=== PATIENT | male | born 1955 | race Caucasian/White ===

== ENCOUNTER → 2018-06-29 14:19 | Outpatient (CLI) | payer BC, SELFPAY ==
[2018-07-02 09:30] LABS: PSA, Diagnostic 0.3 ng/ml (0-4.5)
== END ==
PROVIDERS: PCP Emergency Medicine; Visit Provider Emergency Medicine
DX: R31.9 Hematuria, unspecified (principal); C61 Malignant neoplasm of prostate
CPT/HCPCS: 36415; 81003; 84153; 87086

== ENCOUNTER → 2018-07-04 00:50 | Outpatient (CLI) | payer BC, SELFPAY ==
--- NOTE | 2018-07-04 09:40 | DI.RPTCT_ITS ---
SYMPTOM/DIAGNOSIS: HEMATURIA, UNSPECIFIED R31.[address]: 07/04/ CT examination of the abdomen and pelvis was performed without contrast administration. The visualized portions of the lung bases are unremarkable. A low attenuation incompletely visualized lesion is noted in the liver measuring about 13 mm in greatest diameter at the site of a previously noted right hepatic lobe cyst. Otherwise the liver is unremarkable in appearance. Gallbladder is CT normal and there is no evident biliary dilatation. The pancreas is unremarkable by CT criteria as are visualized portions of the spleen. Abdominal aorta is of normal diameter. No significant abdominal wall hernia seen. Appendix appears normal. No abdominal or pelvic adenopathy seen. Note is made of questionable wall thickening of the distal sigmoid and proximal rectum. Note is also made of apparent wall thickening of the urinary bladder. There are vascular clips in the region of the prostate and the patient reportedly has had previous prostate carcinoma. The findings as described could represent post radiation changes. Correlation with sigmoidoscopy may be considered for further evaluation if clinically appropriate. Adrenals and kidneys appear normal. No urinary tract calcification or obstruction. CONCLUSION: 1. No evidence of urinary tract calcification or obstruction. 2. Wall thickening of the urinary bladder, Question post radiation changes vs cystitis of other etiologies 3. Wall thickening of rectum, possible post radiation changes, inflammatory or neoplastic disease not excluded, please correlate clinically.
== END ==
PROVIDERS: PCP Emergency Medicine; Visit Provider Emergency Medicine
DX: R31.9 Hematuria, unspecified (principal); N32.9 Bladder disorder, unspecified; K62.89 Other specified diseases of anus and rectum; Z85.46 Personal history of malignant neoplasm of prostate
CPT/HCPCS: 74176

== ENCOUNTER 2018-08-17 16:22 | Outpatient (CLI) | payer BC, SELFPAY ==
[2018-08-17 16:42] LABS: Abs Immature Grans 0.02 k/cumm (0.0-0.09); Absolute Basophil Count 0.02 k/cumm (0.0-0.2); Absolute Eosinophil Count 0.02 k/cumm (0.0-0.7); Absolute Lymphocyte Count 1.21 k/cumm (1.2-3.4); Absolute Monocyte Count 0.54 k/cumm (0.11-0.7); Absolute Neutrophil Count 4.75 k/cumm (1.2-6.7); Basophils % 0.3; Eosinophils % 0.3; HCT 42.2 % (40.0-50.0); HGB 14.2 g/dL (13.5-17.5); Immature Grans % 0.3; Lymphocytes % 18.4; Mean Corp. HGB Concentration 33.6 g/dL (32.0-36.0); Mean Corpuscular Hemoglobin 32.1 pg (27.0-33.0); Mean Corpuscular Volume 95.3 fL (80-95); Mean Platelet Volume 10.5 fL (8.0-11.0); Monocytes % 8.2; Neutrophils % 72.5; Platelet Count 206 x1000/uL (130-400); RBC 4.43 m/cumm (4.50-6.00); RBC Distribution Width 13.9 % (11.8-14.1); White Blood Cell Count 6.56 k/cumm (4.4-10.8)
[2018-08-17 17:42] LABS: ALT 38 U/L (12-78); AST 31 U/L (15-37); Alkaline Phosphatase 72 U/L (46-116); Anion Gap 9.2 mmol/L (3-11); BUN 17 mg/dL (7-18); Bilirubin, Total 0.5 mg/dL (0.2-1.0); CO2 26.8 mmol/L (21.0-32.0); CREATININE 0.96 mg/dL (0.70-1.30); Calcium 9.2 mg/dL (8.5-10.1); Chloride 104 mmol/L (98-107); Glucose 106 mg/dL (70-100); Potassium 3.6 mmol/L (3.5-5.1); Sodium 140 mmol/L (136-145); Total Protein 7.3 g/dL (6.4-8.2)
[2018-08-20 11:01] LABS: PSA, Diagnostic 0.3 ng/ml (0-4.5)
== END 2018-08-17 16:42 ==
PROVIDERS: PCP Emergency Medicine; Visit Provider Internal Medicine
DX: C61 Malignant neoplasm of prostate (principal)
CPT/HCPCS: 36415; 80053; 84153; 85025

== ENCOUNTER 2018-08-27 13:01 | Day surgery (SDC) | payer BC, SELFPAY ==
--- NOTE | 2018-08-27 12:51 | DI.RAD_ITS ---
SYMPTOMS/DIAGNOSIS: HEMATURIA BILATERAL RETROGRADE EXAMINATION: Fluoroscopy Time: 35.7secs A bilateral retrograde study was carried out by Dr. Ayala. The left retrograde examination is unremarkable. There is some dilatation of the right intrarenal collecting structures and a region of radiolucency involving the ureteropelvic junction is demonstrated. The findings could conceivably represent a blood clot , or stone or mucosal abnormality. Please see Dr. Ayala's procedure report for further information.
[2018-08-27 13:23] VITALS: BP 118/71; PULSE 45; RESP 15; TEMP 36.5; O2SAT 99
--- NOTE | 2018-08-27 14:07 | W.PM.HP.N ---
Assessment and Plan (1) Gross hematuria: Current visit: Yes Status: Acute For cystoscopy with retrograde pyelogram to complete his workup. History of Present Illness Chief Complaint: Hematuria Narrative: This is a 62 year old man who has a history of prostate cancer. He was treated with a combination of Lupron and IMRT. He has not had any sign of tumor recurrance. He had an episode of gross hematuria with clots several weeks ago. The bleeding resolved on its own and has not recurred. The onset of bleeding occurred after strenuous activity. He has been evaluated with a stone protocol CT which was unremarkable. He presents for cystoscopy to complete his hematuria workup. He has never been a smoker Review of Systems Constitutional Denies chills and Denies fever(s) Eyes Denies change in vision ENT Denies dysphagia Cardiovascular Denies chest pain and Reports syncope Respiratory Denies cough and Denies hemoptysis Gastrointestinal Denies dysphagia, Denies nausea and Denies vomiting Musculoskeletal Reports arthralgias Neurologic Reports syncope Comments: vasovagal reaction PFSH Family History Grandmother Diabetes Mother Heart disease Father Personal history of malignant neoplasm Sister Essential hypertension Grandfather Heart disease Grandfather Heart disease History of rheumatic fever Grandmother Diabetes Medical History Anxiety Carcinoma of prostate Coronary artery bypass x3 - 2010 PTSD (post-traumatic stress disorder) Social History Smoking/Tobacco Use Status: Never Surgical History Coronary Artery Bypass Ga (CABG) (05/20/10) Meds Home Medications Medication Instructions Recorded Confirmed Type aspirin [Aspirin Low-Strength] 1 tab PO DAILY tab-cap 03/25/14 08/27/18 History coenzyme Q10 [Co Q-10] 100 mg PO DAILY 05/27/14 08/24/18 History cholecalciferol (vitamin D3) 5,000 unit PO DAILY 12/22/14 08/24/18 History cyanocobalamin (vitamin B-12) 500 mcg PO DAILY 01/03/18 08/24/18 History [B-12] magnesium amino acid chelate 100 mg PO DAILY 01/03/18 08/24/18 History zinc gluconate-zinc picolinate 30 mg PO DAILY PRN 01/03/18 08/24/18 History pravastatin [Pravachol] 20 mg PO DAILY #90 tab-cap 06/06/18 08/24/18 Rx calcium citrate 1 tab PO DAILY PRN PRN 08/24/18 08/24/18 History vitamin B complex [B Complex 1] 1 tab PO DAILY 08/24/18 08/24/18 History metoprolol tartrate 25 mg PO BID 08/27/18 08/27/18 History Allergies Allergy/AdvReac Type Severity Reaction Status Date / Time No Known Allergies Allergy Unverified 07/03/18 08:43 Exam Const General: cooperative, comfortable and no acute distress Neck Neck: supple Resp Effort & Inspection: normal respiratory effort Auscultation: clear to auscultation bilaterally Cardio Rate: regular rate GI Palpation: soft and no masses Psych Mental Status: mental status grossly normal Results Last Vital Signs Temp 36.5 C 08/27/18 13:23 Pulse 45 L 08/27/18 13:23 Resp 15 08/27/18 13:23 BP 118/71 08/27/18 13:23 Pulse Ox 99 08/27/18 13:23
[2018-08-27] MEDS: Lactated Ringers 1,000 ML 80 ML IV (14:19)
[2018-08-27] MEDS: Lidocaine 2% Jelly 6 ML SYR (14:47)
[2018-08-27] MEDS: IOHEXOL 50 ML 20 ML (14:51)
--- NOTE | 2018-08-27 15:03 | W.PM.DSUDISC ---
Discharge Plan Disposition Patient Disposition: HOME Condition: Stable Discharge Details Reason For Visit: GROSS HEMATURIA Attending Provider: Handy Ayala Primary Care Provider: Fuentes Foreman Home Meds and New Rx's Prescriptions: No Action aspirin [Aspirin Low-Strength] 81 MG tablet,chewable 1 tab PO DAILY RF: 0 coenzyme Q10 [Co Q-10] 100 MG capsule 100 mg PO DAILY RF: 0 cholecalciferol (vitamin D3) 1,000 UNIT capsule 5,000 unit PO DAILY RF: 0 zinc gluconate-zinc picolinate 30 MG capsule 30 mg PO DAILY PRNRF: 0 magnesium amino acid chelate 100 MG tablet 100 mg PO DAILY RF: 0 cyanocobalamin (vitamin B-12) [Vitamin B-12] 500 MCG tablet 500 mcg PO DAILY RF: 0 pravastatin [Pravachol] 20 MG tablet 20 mg PO DAILY Qty: 90 RF: 4 vitamin B complex [B Complex 1] Tablet 1 tab PO DAILY RF: 0 calcium citrate 760 mg calcium /3.5 gram Granules 1 tab PO DAILY PRN PRNRF: 0 metoprolol tartrate 25 MG tablet 25 mg PO BID RF: 0 Discharge Instructions Additional Instructions: Follow up with us prn - continue to follow with [facility] for prostate cancer Activity:: Activity as Tolerated Diet:: As Tolerated Discharge Orders Discharge Orders: Discharge Order (Routine); Ordered 08/27/18 Ordered By: Handy Ayala DS: Diagnosis Discharge Diagnosis (1) Gross hematuria: Status: Acute
[2018-08-27 15:35] VITALS: BP 113/58; PULSE 49; RESP 15; TEMP 36.1; O2SAT 100
--- NOTE | 2018-08-27 16:43 | ROE_ITS ---
DATE OF PROCEDURE: August 27, 2018 PREOPERATIVE DIAGNOSIS: Gross hematuria. POSTOPERATIVE DIAGNOSIS: Gross hematuria. PROCEDURE: Cystoscopy with bilateral retrograde pyelogram. SURGEON: Handy Ayala M.D. ANESTHESIA: MAC with local. COMPLICATIONS: None. HISTORY: This is a 62-year-old gentleman who has a history of prostate cancer. He was treated with a combination of Lupron plus external beam radiation. His tumor has been under good control and is f ollowed at [facility]. About two months ago he had an episode of gross hematuria with clots. The hematuria occurred after a n especially strenuous weekend. He had a noncontrast CT scan which appeared normal. He presents now for cystoscopy with retrograde pyelogram to complete his hematuria workup. OPERATIVE REPORT: The patient was brought to the Operating Room on 08/27/18. After being given jessica tored anesthesia care, he was placed in the dorsal lithotomy position. His genitalia was prepped and draped. Two percent Xylocaine jelly was instilled into the urethra to act as a local anesthetic. A 22 Yakut rigid cystoscope was passed through the urethra into the bladder. The bladder was inspec poornima with a 30-degree lens. The pendulous, bulbous, and membranous urethras all appeared normal with no strictures. The prostati c urethra showed a prominent blood vessel out toward the verumontanum. Additional prominent vessels were seen at the bladder neck. No papillary or nodular lesions were seen in the prostatic fossa. The bladder neck was entered and t he bladder mucosa was inspected. Both ureteral orifices appeared normal. No blood was seen coming f rom either side. No papillary or nodular lesions were seen. Some of the blood vessels in the bladde r appeared prominent. Each ureteral orifice was cannulated with a 6 Yakut access catheter. Retrograde films were obtained by injecting Omnipaque through the access catheter under fluoroscopic guidance. Both ureters and co llecting systems appeared normal. Both sides drained promptly. The bladder was emptied and the scope was removed. The patient tolerated the procedure well with no complications. Based on this examination, I find no significant uropathology. He likely has a component of radiatio n prostatitis that contributes to the episode of bleeding.
== END 2018-08-27 15:48 | disposition home or self-care (01) ==
PROVIDERS: PCP Emergency Medicine; Visit Provider Urology
PROC: (CPT 74450; principal; 2018-08-27 14:15)
DX: R31.0 Gross hematuria (principal); Z85.46 Personal history of malignant neoplasm of prostate
CPT/HCPCS: 52005; NC; 74420; J0131; J0690; J1885; J2250; Q9967

== ENCOUNTER 2018-09-04 10:16 | Outpatient (CLI) | payer BC, SELFPAY ==
[2018-09-04 13:51] LABS: TSH 1.07 uIU/mL (0.358-3.74)
== END 2018-09-04 10:36 ==
PROVIDERS: PCP Emergency Medicine; Visit Provider Emergency Medicine
DX: E78.5 Hyperlipidemia, unspecified (principal)
CPT/HCPCS: 36415; 84443

== ENCOUNTER 2019-02-11 08:39 | Outpatient (CLI) | payer BC, SELFPAY ==
[2019-02-11 14:38] LABS: Abs Immature Grans 0.01 k/cumm (0.0-0.09); Absolute Basophil Count 0.02 k/cumm (0.0-0.2); Absolute Eosinophil Count 0.03 k/cumm (0.0-0.7); Absolute Lymphocyte Count 1.58 k/cumm (1.2-3.4); Absolute Monocyte Count 0.52 k/cumm (0.11-0.7); Basophils % 0.4; Eosinophils % 0.6; HCT 43.7 % (40.0-50.0); HGB 14.5 g/dL (13.5-17.5); Immature Grans % 0.2; Lymphocytes % 29.5; Mean Corp. HGB Concentration 33.2 g/dL (32.0-36.0); Mean Corpuscular Hemoglobin 31.8 pg (27.0-33.0); Mean Corpuscular Volume 95.8 fL (80-95); Mean Platelet Volume 9.9 fL (8.0-11.0); Monocytes % 9.7; Neutrophils % 59.6; Platelet Count 203 x1000/uL (130-400); RBC 4.56 m/cumm (4.50-6.00); RBC Distribution Width 14.2 % (11.8-14.1); White Blood Cell Count 5.36 k/cumm (4.4-10.8)
[2019-02-11 15:24] LABS: ALT 38 U/L (12-78); AST 27 U/L (15-37); Albumin 4.2 g/dL (3.4-5.0); Alkaline Phosphatase 69 U/L (46-116); Anion Gap 15.1 mmol/L (3-11); BUN 16 mg/dL (7-18); Bilirubin, Total 0.5 mg/dL (0.2-1.0); CO2 23.9 mmol/L (21.0-32.0); CREATININE 1.12 mg/dL (0.70-1.30); Calcium 9.1 mg/dL (8.5-10.1); Chloride 100 mmol/L (98-107); Glucose 90 mg/dL (70-100); Potassium 4.1 mmol/L (3.5-5.1); Sodium 139 mmol/L (136-145); Total Protein 7.3 g/dL (6.4-8.2)
[2019-02-12 14:53] LABS: PSA, Diagnostic 0.3 ng/ml (0-4.5)
== END 2019-02-11 08:59 ==
PROVIDERS: PCP Emergency Medicine; Visit Provider Internal Medicine
DX: C61 Malignant neoplasm of prostate (principal)
CPT/HCPCS: 36415; 80053; 84153; 85025

== ENCOUNTER 2019-05-15 04:26 | Outpatient (CLI) | payer BC, SELFPAY ==
[2019-05-15 09:19] LABS: Calculated LDL 141 mg/dL; Cholesterol 203 mg/dL (50-200); HDL Cholesterol 41 mg/dL (40-60); Triglyceride 108 mg/dL (30-150)
== END 2019-05-15 04:46 ==
PROVIDERS: PCP Emergency Medicine; Visit Provider Emergency Medicine
DX: E78.5 Hyperlipidemia, unspecified (principal)
CPT/HCPCS: 36415; 80061; 83721

== ENCOUNTER 2019-08-20 10:28 | Outpatient (CLI) | payer BC, SELFPAY ==
[2019-08-20 14:04] LABS: Absolute Basophil Count 0.02 k/cumm (0.0-0.2); Absolute Eosinophil Count 0.04 k/cumm (0.0-0.7); Absolute Lymphocyte Count 1.53 k/cumm (1.2-3.4); Absolute Monocyte Count 0.44 k/cumm (0.11-0.7); Absolute Neutrophil Count 3.43 k/cumm (1.2-6.7); Basophils % 0.4; Eosinophils % 0.7; HCT 42.9 % (40.0-50.0); HGB 14.4 g/dL (13.5-17.5); Mean Corp. HGB Concentration 33.6 g/dL (32.0-36.0); Mean Corpuscular Hemoglobin 32.1 pg (27.0-33.0); Mean Corpuscular Volume 95.5 fL (80-95); Mean Platelet Volume 10.2 fL (8.0-11.0); Monocytes % 8.1; Neutrophils % 62.8; Platelet Count 229 x1000/uL (130-400); RBC 4.49 m/cumm (4.50-6.00); RBC Distribution Width 13.8 % (11.8-14.1); White Blood Cell Count 5.46 k/cumm (4.4-10.8)
[2019-08-20 14:06] LABS: ALT 32 U/L (16-63); AST 24 U/L (15-37); Albumin 4.1 g/dL (3.4-5.0); Alkaline Phosphatase 54 U/L (46-116); Anion Gap 7.7 mmol/L (3-11); BUN 14 mg/dL (7-18); Bilirubin, Total 0.5 mg/dL (0.2-1.0); CO2 27.3 mmol/L (21.0-32.0); CREATININE 1.11 mg/dL (0.70-1.30); Calcium 9.3 mg/dL (8.5-10.1); Chloride 104 mmol/L (98-107); Glucose 96 mg/dL (70-100); Sodium 139 mmol/L (136-145); Total Protein 7.4 g/dL (6.4-8.2)
[2019-08-20 15:04] LABS: Calculated LDL 104 mg/dL; Cholesterol 179 mg/dL (50-200); HDL Cholesterol 38 mg/dL (40-60); Triglyceride 187 mg/dL (30-150)
[2019-08-21 10:01] LABS: PSA, Diagnostic 0.2 ng/ml (0-4.5)
== END 2019-08-20 10:48 ==
PROVIDERS: PCP Emergency Medicine; Visit Provider Internal Medicine
DX: E78.5 Hyperlipidemia, unspecified (principal); C61 Malignant neoplasm of prostate
CPT/HCPCS: 36415; 80053; 80061; 84153; 85025

== ENCOUNTER 2019-08-24 01:04 | Outpatient (CLI) | payer BC, SELFPAY ==
[2019-08-24 10:25] LABS: ALT 38 U/L (16-63); AST 31 U/L (15-37); Albumin 4.4 g/dL (3.4-5.0); Alkaline Phosphatase 55 U/L (46-116); Bilirubin, Direct 0.19 mg/dL (0.00-0.20); Total Protein 7.5 g/dL (6.4-8.2)
[2019-08-26 07:43] LABS: Vitamin D 25 Total 60.9 ng/ml (30-100)
== END 2019-08-24 01:24 ==
PROVIDERS: PCP Emergency Medicine; Visit Provider Naturopath
DX: E78.5 Hyperlipidemia, unspecified (principal); Z13.21 Encounter for screening for nutritional disorder
CPT/HCPCS: 36415; 80076; 82306

== ENCOUNTER 2019-10-18 08:31 | Outpatient (CLI) | payer BC, MEDICAID, SELFPAY ==
[2019-10-18 10:10] LABS: ALT 39 U/L (16-63); AST 27 U/L (15-37); Albumin 4.2 g/dL (3.4-5.0); Alkaline Phosphatase 54 U/L (46-116); Bilirubin, Total 0.9 mg/dL (0.2-1.0); Calculated LDL 92 mg/dL; Cholesterol 153 mg/dL (<200); HDL Cholesterol 45 mg/dL (40-60); Total Protein 7.2 g/dL (6.4-8.2); Triglyceride 82 mg/dL (<150)
[2019-10-18 17:20] LABS: Bilirubin, Direct 0.18 mg/dL (0.00-0.20)
[2019-10-21 08:24] LABS: Vitamin D 25 Total 65.5 ng/ml (30-100)
== END 2019-10-18 08:51 ==
PROVIDERS: PCP Emergency Medicine; Visit Provider Naturopath
DX: E78.5 Hyperlipidemia, unspecified (principal); Z13.21 Encounter for screening for nutritional disorder
CPT/HCPCS: 36415; 80061; 80076; 82306; 82652

== ENCOUNTER 2020-09-07 01:39 | Outpatient (CLI) | payer MEDICAID, SELFPAY ==
[2020-09-07 12:55] LABS: Absolute Basophil Count 0.02 10^3/uL (0.0-0.2); Absolute Eosinophil Count 0.02 10^3/uL (0.0-0.7); Absolute Lymphocyte Count 1.14 10^3/uL (1.2-3.4); Absolute Monocyte Count 0.47 10^3/uL (0.1-0.8); Absolute Neutrophil Count 2.37 10^3/uL (1.2-6.7); Basophils % 0.5; Eosinophils % 0.5; HCT 44.5 % (40.0-50.0); HGB 14.9 g/dL (13.5-17.5); Lymphocytes % 28.4; MCH 32.9 pg (27.0-33.0); MCHC 33.5 % (32.0-36.0); MCV 98.2 fL (80-95); MPV 10.1 fL (8.0-11.0); Monocytes % 11.7; Neutrophils % 58.9; Nucleated RBC 0 %; Platelet Count 206 10^3/uL (130-400); RBC 4.53 10^6/uL (4.36-5.78); RDW 13.2 % (11.8-14.1); RDW-SD 47.9 fL; WBC 4.02 10^3/uL (4.4-10.8)
[2020-09-07 14:22] LABS: ALT 32 U/L (16-63); AST 31 U/L (15-37); Albumin 4.3 g/dL (3.4-5.0); Alkaline Phosphatase 63 U/L (46-116); Anion Gap 5.1 mmol/L (3-11); BUN 12 mg/dL (7-18); Bilirubin, Total 0.8 mg/dL (0.2-1.0); CO2 29.9 mmol/L (21.0-32.0); CREATININE 0.95 mg/dL (0.70-1.30); Calcium 9.4 mg/dL (8.5-10.1); Chloride 100 mmol/L (98-107); Glucose 86 mg/dL (74-106); Potassium 4.3 mmol/L (3.5-5.1); Sodium 135 mmol/L (136-145); Total Protein 7.5 g/dL (6.4-8.2)
[2020-09-10 11:23] LABS: Estradiol, Mass Spectrometry 47 pg/mL (10-40); Estrone 72 pg/mL (10-60)
[2020-09-11 11:22] LABS: Testosterone, Free 11.9 ng/dL (3.67-13.9); Testosterone, Total 912 ng/dL (240-950)
== END 2020-09-07 01:59 ==
PROVIDERS: PCP Emergency Medicine; Visit Provider Naturopath
DX: R94.7 Abnormal results of other endocrine function studies (principal); Z85.46 Personal history of malignant neoplasm of prostate; E78.5 Hyperlipidemia, unspecified
CPT/HCPCS: 36415; 80053; 84402; 84403; 82670; 82679; 85025

== ENCOUNTER 2020-10-12 02:35 | Outpatient (CLI) | payer MEDICAID, SELFPAY ==
[2020-10-12 10:53] LABS: Calculated LDL 146 mg/dL (<100); Cholesterol 218 mg/dL (<200); HDL Cholesterol 40 mg/dL (40-60); Triglyceride 163 mg/dL (<150)
[2020-10-12 21:59] LABS: PSA, Diagnostic 0.2 ng/mL (0.0-4.5)
[2020-10-13 21:06] LABS: COVID-19 RT-PCR Result NEGATIVE (Negative)
== END 2020-10-12 02:55 ==
PROVIDERS: PCP Emergency Medicine; Visit Provider Otolaryngology
DX: C61 Malignant neoplasm of prostate (principal); I25.10 Atherosclerotic heart disease of native coronary artery without angina pectoris; Z11.59 Encounter for screening for other viral diseases; Z01.818 Encounter for other preprocedural examination
CPT/HCPCS: 36415; 80061; U0003; 84153

== ENCOUNTER 2020-10-15 06:17 | Day surgery (SDC) | payer MEDICAID, SELFPAY ==
--- NOTE | 2020-10-02 15:35 | PDOC.ANES ---
Date of service: 10/02/20 Time of Service: 15:36 Anesthesia Note Report Anesthesia Note: Received fax from Dr. Mojica's office requesting Anesthesia review for upcoming surgery, left submandibular gland excision on 10/15/20. [facility] and [facility] charts reviewed. Phoned office to inform that case can proceed as scheduled.
[2020-10-15] VITALS (8 sets, daily range): BP systolic 98–163; BP diastolic 53–82; PULSE 46–52; RESP 4–16; TEMP 36.3–36.9; O2SAT 97–100
[2020-10-15] MEDS: Lactated Ringers 1,000 ML 80 ML IV (06:59)
[2020-10-15] MEDS: ceFAZolin 2 GM/50 ML BAG IVPB (07:35)
--- NOTE | 2020-10-15 09:13 | GLAND_PTH ---
PATIENT: Tang Hyman LOC: [facility] U#:[id number] AGE/SX: 65/M ROOM: RE10/15/[address]: Deep Mojica MD : [id number] BED: DIS: 10/15/2020 SPEC #: [id number] RECD: 10/15/20 12:24 STATUS: EMILE REQ #: [id number] JENNIFER: 10/15/20 09:[address]: Deep Mojica DEPT: Surgical Specimen RECD BY: Arabella Paulson ENTERED: 10/15/20 12:26 SP TYPE: Gland OTHR DR: Fuentes Foreman DO Tissues: 1 - SALIVARY GLAND EXCISION Procedures: GROSS AND MICRO LEVEL 5 Comments: [id number]
--- NOTE | 2020-10-15 09:35 | W.PM.DSUDISC ---
Discharge Plan Disposition Patient Disposition: HOME Condition: Good Discharge Details Attending Provider: Deep Mojica Primary Care Provider: Fuentes Foreman Home Meds and New Rx's Prescriptions: No Action aspirin [Aspirin Low-Strength] 81 MG tablet,chewable 1 tab PO DAILY RF: 0 coenzyme Q10 [Co Q-10] 100 MG capsule 100 mg PO DAILY RF: 0 cholecalciferol (vitamin D3) 1,000 UNIT capsule 5,000 unit PO DAILY RF: 0 magnesium amino acid chelate 100 MG tablet 100 mg PO DAILY RF: 0 cyanocobalamin (vitamin B-12) [Vitamin B-12] 500 MCG tablet 500 mcg PO DAILY RF: 0 metoprolol tartrate 25 mg tablet 12.5 mg PO BID Qty: 90 RF: 3 rosuvastatin 20 mg tablet 20 mg PO DAILY Qty: 90 RF: 3 vitamin B complex [B Complex 1] Tablet 1 tab PO DAILY RF: 0 niacin 100 mg Tablet 400 mg PO DAILY RF: 0 Discharge Instructions Additional Instructions: May shower today with dressing. Remove dressing tomorrow after shower and do not replace. Call with any signs of infection. Apply bacitracin ointment to the incision 3x per day x 3 days once dressing removed. Use Ibuprofen and/or tylenol for pain control Referrals: Deep Mojica MD [ [facility] STAFF PHYSICIAN] - (2 weeks. Please call for appointment) Activity:: light activity for 1 week Diet:: As Tolerated
[2020-10-15] MEDS: Ibuprofen 600 MG TAB PO (11:05)
--- NOTE | 2020-10-15 11:38 | W.PM.OP ---
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 Options were explained to the patient regarding further management. Risks and benefits were reviewed. Consent was filled out and signed prior to surgery. Findings: Fibrotic tissues surrounding the left submandibular gland which was also fibrotic and firm. Marginal mandibular nerve, lingual nerve, and hypoglossal nerves were all seen and preserved. Palpation of the submandibular duct did not reveal any residual palpable sialoliths. Procedure Description: After obtaining an adequate level of general endotracheal anesthesia the patient was positioned in a supine position with his head turned to the right. 1% lidocaine with 1/100,000 epinephrine was injected into an incision planned approximately 2 fingerbreadths below the mandibular ramus, along the skin crease. This lay directly over the inferior aspect of the submandibular gland. 15 blade was used to incise the skin and subcutaneous tissues. The platysmal plane was then sharply divided, and dissection continued down along the inferior Edge of the submandibular gland through the fascia overlying the submandibular gland. The marginal mandibular nerve was identified midway along the Lateral aspect of the submandibular gland and was reflected cephalad with the submandibular fascia. This was significantly fibrotic throughout the entire fascial plane. Once this had been reflected, the submandibular gland was progressively marsupialized, and the lingual nerve identified. The branch of the lingual nerve leading to the submandibular gland was identified, crossclamped, ligated, and divided. The gland was progressively mobilized, finding scar tissue on all fronts. The hypoglossal nerve was identified and preserved. As the gland was Skeletonized, the submandibular duct was identified, and traced forward underneath the mylohyoid. No stones could be palpated. The submandibular duct was isolated, crossclamped, divided, and ligated. The wound was then inspected for relative hemostasis, and Valsalva x2 did not cause any bleeding. The wound was irrigated with saline, and then closed in 2 layers, consisting of a platysmal layer of three-point 0 Monocryl's, and a subcuticular plane of inverted interrupted 3-0 Monocryl's. Wound edges were felt to be well approximated. A sterile dressing was then applied. Pressure was held on the wound while the patient awakened, with no accumulation of hematoma or seroma during the awakening process. The patient was transported the recovery room in stable condition. I was present throughout the entire case. Thanks this is bending back and dictating. Please note that Jessica assisted me throughout the case . Specimen was sent to pathology in formalin
== END 2020-10-15 12:25 | disposition home or self-care (01) ==
PROVIDERS: PCP Emergency Medicine; Visit Provider Otolaryngology
PROC: (CPT 42410; principal; 2020-10-15 07:30)
DX: K11.23 Chronic sialoadenitis (principal); E78.5 Hyperlipidemia, unspecified; I25.10 Atherosclerotic heart disease of native coronary artery without angina pectoris
CPT/HCPCS: 42440; 88307; J0690; J1100; J2405; J2704

== ENCOUNTER 2021-03-30 03:19 | Outpatient (CLI) | payer MEDICAID, SELFPAY ==
[2021-03-30 09:21] LABS: Absolute Basophil Count 0.01 10^3/uL (0.0-0.2); Absolute Eosinophil Count 0.05 10^3/uL (0.0-0.7); Absolute Lymphocyte Count 1.34 10^3/uL (1.2-3.4); Absolute Monocyte Count 0.44 10^3/uL (0.1-0.8); Absolute Neutrophil Count 1.84 10^3/uL (1.2-6.7); Basophils % 0.3; Eosinophils % 1.4; HGB 14.7 g/dL (13.5-17.5); Lymphocytes % 36.4; MCH 32.6 pg (27.0-33.0); MCHC 33.4 % (32.0-36.0); MCV 97.6 fL (80-95); MPV 9.6 fL (8.0-11.0); Neutrophils % 49.9; Nucleated RBC 0 %; Platelet Count 201 10^3/uL (130-400); RBC 4.51 10^6/uL (4.36-5.78); RDW 13.3 % (11.8-14.1); RDW-SD 48.5 fL; WBC 3.68 10^3/uL (4.4-10.8)
[2021-03-30 09:59] LABS: ALT 42 U/L (16-63); AST 33 U/L (15-37); Albumin 4.1 g/dL (3.4-5.0); Alkaline Phosphatase 62 U/L (46-116); Anion Gap 6.7 mmol/L (3-11); BUN 11 mg/dL (7-18); Bilirubin, Total 0.7 mg/dL (0.2-1.0); CO2 30.3 mmol/L (21.0-32.0); CREATININE 0.9 mg/dL (0.70-1.30); Calcium 9.2 mg/dL (8.5-10.1); Chloride 104 mmol/L (98-107); Glucose 100 mg/dL (74-106); Potassium 4.2 mmol/L (3.5-5.1); Sodium 141 mmol/L (136-145); Total Protein 7.2 g/dL (6.4-8.2)
[2021-03-30 10:16] LABS: Calculated LDL 127 mg/dL (<100); Cholesterol 200 mg/dL (<200); HDL Cholesterol 41 mg/dL (40-60); Triglyceride 164 mg/dL (<150)
[2021-03-31 18:51] LABS: PSA, Ultrasensitive 0.31 ng/mL (<= 4.5)
[2021-04-02 12:45] LABS: Testosterone, Total 851 ng/dL (240-950)
== END 2021-03-30 03:20 | disposition home or self-care (01) ==
LOC: LBO 03:20
PROVIDERS: PCP Emergency Medicine; Visit Provider Internal Medicine
DX: C61 Malignant neoplasm of prostate (principal); I25.10 Atherosclerotic heart disease of native coronary artery without angina pectoris
CPT/HCPCS: 36415; 80053; 80061; 84153; 84403; 85025

== ENCOUNTER 2021-10-25 04:07 | Outpatient (CLI) | payer MEDICARE, SELFPAY ==
[2021-10-25 13:32] LABS: Calculated LDL 103 mg/dL (<100); Cholesterol 171 mg/dL (<200); HDL Cholesterol 43 mg/dL (40-60); Triglyceride 128 mg/dL (<150)
[2021-10-26 17:08] LABS: PSA, Ultrasensitive 0.31 ng/mL (<= 4.5)
== END 2021-10-25 04:08 | disposition home or self-care (01) ==
LOC: LBO 04:08
PROVIDERS: PCP Emergency Medicine; Visit Provider Emergency Medicine
DX: I25.10 Atherosclerotic heart disease of native coronary artery without angina pectoris (principal); C61 Malignant neoplasm of prostate
CPT/HCPCS: 36415; 80061; 84153

== ENCOUNTER 2022-04-08 12:32 | Outpatient (CLI) | payer MEDICARE, MEDICAID, SELFPAY ==
[2022-04-08 11:28] LABS: Abs Immature Grans 0.01 10^3/uL (0.0-0.06); Absolute Basophil Count 0.03 10^3/uL (0.0-0.2); Absolute Eosinophil Count 0.04 10^3/uL (0.0-0.7); Absolute Lymphocyte Count 1.27 10^3/uL (1.2-3.4); Absolute Monocyte Count 0.42 10^3/uL (0.1-0.8); Absolute Neutrophil Count 2.14 10^3/uL (1.2-6.7); Basophils % 0.8; HCT 44.9 % (40.0-50.0); HGB 15.1 g/dL (13.5-17.5); Immature Grans % 0.3; Lymphocytes % 32.5; MCH 32.2 pg (27.0-33.0); MCHC 33.6 % (32.0-36.0); MCV 96 fL (80-95); MPV 9.9 fL (8.0-11.0); Monocytes % 10.7; Neutrophils % 54.7; Platelet Count 247 10^3/uL (130-400); RBC 4.69 10^6/uL (4.36-5.78); RDW 13.4 % (11.8-14.1); RDW-SD 47.7 fL; WBC 3.91 10^3/uL (4.4-10.8)
[2022-04-08 12:12] LABS: ALT 54 U/L (16-63); AST 48 U/L (15-37); Albumin 4.2 g/dL (3.4-5.0); Alkaline Phosphatase 74 U/L (46-116); Anion Gap 9.4 mmol/L (3-11); BUN 12 mg/dL (7-18); Bilirubin, Total 0.9 mg/dL (0.2-1.0); CO2 26.6 mmol/L (21.0-32.0); CREATININE 0.9 mg/dL (0.70-1.30); Calcium 9.4 mg/dL (8.5-10.1); Chloride 106 mmol/L (98-107); Glucose 90 mg/dL (74-106); Potassium 4.4 mmol/L (3.5-5.1); Sodium 142 mmol/L (136-145); Total Protein 7.2 g/dL (6.4-8.2)
[2022-04-12 11:33] LABS: PSA, Ultrasensitive 0.35 ng/mL (<= 4.5)
== END 2022-04-08 12:33 | disposition home or self-care (01) ==
LOC: LBO 12:39
PROVIDERS: PCP Family Medicine; Visit Provider Nurse Practitioner Adult Health
DX: C61 Malignant neoplasm of prostate (principal)
CPT/HCPCS: 36415; 80053; 84153; 85025

== ENCOUNTER 2022-06-07 03:34 | Outpatient (CLI) | payer MEDICARE, MEDICAID, SELFPAY ==
[2022-06-07 10:01] LABS: ALT 36 U/L (16-63); AST 27 U/L (15-37); Albumin 4.2 g/dL (3.4-5.0); Alkaline Phosphatase 67 U/L (46-116); Bilirubin, Direct 0.2 mg/dL (0.0-0.2); Bilirubin, Total 0.8 mg/dL (0.2-1.0); Calculated LDL 123 mg/dL (<100); Cholesterol 199 mg/dL (<200); HDL Cholesterol 49 mg/dL (40-60); Total Protein 7.7 g/dL (6.4-8.2); Triglyceride 137 mg/dL (<150); Vitamin B12 1206 pg/mL (193-986)
[2022-06-07 11:01] LABS: Folate > 20.0 ng/mL (8.6-20.0)
[2022-06-07 18:41] LABS: Vitamin D 25 Total 54.5 ng/mL (30-100)
== END 2022-06-07 03:35 | disposition home or self-care (01) ==
PROVIDERS: PCP Nurse Practitioner; Visit Provider Naturopath
DX: E78.5 Hyperlipidemia, unspecified (principal); E55.9 Vitamin D deficiency, unspecified; E72.12 Methylenetetrahydrofolate reductase deficiency
CPT/HCPCS: 36415; 80061; 80076; 82306; 83090; 82607; 82746

== ENCOUNTER 2022-11-18 13:44 | Outpatient (CLI) | payer MEDICARE, MEDICAID, SELFPAY ==
--- NOTE | 2022-11-18 13:30 | RT.EKG_ITS ---
APPROVED REPORT Exam: Resting ECG Reason for Exam: cardiac evaluation Patient Location: O HR:68 bpm ECG Measurements Heart Rate 68 AXIS NV 161 P 138 QRSd 104 QRS 144 QT 322 T -42 QTc 343 Conclusion Right and left arm electrode reversal, interpretation assumes no reversal Sinus or ectopic atrial rhythm...P axis (-45,135) Probable left atrial enlargement...P >50mS, <-0.10mV V1 Right axis deviation...QRS axis ( 91,269) Borderline low voltage, extremity leads...all extremity leads <0.6mV Baseline wander in lead(s) V2,V5,V6
--- NOTE | 2022-11-18 14:15 | RT.EKG_ITS ---
APPROVED REPORT Exam: Resting ECG Reason for Exam: evaluation of cardiac Patient Location: O HR:59 bpm ECG Measurements Heart Rate 59 AXIS ME 166 P 61 QRSd 105 QRS 59 QT 409 T 30 QTc 406 Conclusion Sinus rhythm...normal P axis, V-rate 50- 99 Probable left ventricular hypertrophy...multiple LVH criteria
== END 2022-11-18 13:45 | disposition home or self-care (01) ==
PROVIDERS: PCP Nurse Practitioner Family; Visit Provider Internal Medicine Cardiovascular Disease
DX: I25.10 Atherosclerotic heart disease of native coronary artery without angina pectoris (principal); Z95.1 Presence of aortocoronary bypass graft
CPT/HCPCS: 93010

== ENCOUNTER → 2022-11-18 13:54 | Outpatient (BNVA) | payer MEDICARE, SELFPAY | PROVIDERS: PCP Nurse Practitioner Family; Referring Provider Nurse Practitioner Family; Visit Provider Internal Medicine Cardiovascular Disease | DX: I25.10 Atherosclerotic heart disease of native coronary artery without angina pectoris (principal); E78.5 Hyperlipidemia, unspecified; Z95.1 Presence of aortocoronary bypass graft | CPT/HCPCS: 93005; 99203 ==

== ENCOUNTER 2023-05-23 09:44 | Outpatient (CLI) | payer MEDICARE, SELFPAY ==
[2023-05-23 10:02] LABS: Abs Immature Grans 0.01 10^3/uL (0.0-0.06); Absolute Basophil Count 0.03 10^3/uL (0.0-0.2); Absolute Eosinophil Count 0.05 10^3/uL (0.0-0.7); Absolute Lymphocyte Count 1.33 10^3/uL (1.2-3.4); Absolute Monocyte Count 0.46 10^3/uL (0.1-0.8); Absolute Neutrophil Count 2.69 10^3/uL (1.2-6.7); Basophils % 0.7; Eosinophils % 1.1; HCT 44.8 % (40.0-50.0); HGB 15.1 g/dL (13.5-17.5); Immature Grans % 0.2; Lymphocytes % 29.1; MCH 31.5 pg (27.0-33.0); MCHC 33.7 % (32.0-36.0); MCV 93 fL (80-95); MPV 9.4 fL (8.0-11.0); Monocytes % 10.1; Neutrophils % 58.8; Platelet Count 244 10^3/uL (130-400); RDW 13.3 % (11.8-14.1); RDW-SD 45.9 fL; WBC 4.57 10^3/uL (4.4-10.8)
[2023-05-23 10:16] LABS: ALT 41 U/L (16-63); AST 35 U/L (15-37); Albumin 4.1 g/dL (3.4-5.0); Alkaline Phosphatase 73 U/L (46-116); Anion Gap 7.7 mmol/L (3-11); BUN 11 mg/dL (7-18); Bilirubin, Total 0.7 mg/dL (0.2-1.0); CO2 27.3 mmol/L (21.0-32.0); Calcium 9.3 mg/dL (8.5-10.1); Chloride 104 mmol/L (98-107); Estimated GFR 83.01 (mL/min/1.73m2); Glucose 93 mg/dL (74-106); Potassium 4.1 mmol/L (3.5-5.1); Sodium 139 mmol/L (136-145); Total Protein 7.5 g/dL (6.4-8.2)
[2023-05-25 11:21] LABS: PSA, Ultrasensitive 0.44 ng/mL (<= 4.5)
== END 2023-05-23 09:45 | disposition home or self-care (01) ==
LOC: LBO 09:44
PROVIDERS: PCP Nurse Practitioner Family; Visit Provider Internal Medicine
DX: C61 Malignant neoplasm of prostate (principal)
CPT/HCPCS: 36415; 80053; 84153; 85025

== ENCOUNTER → 2023-11-17 13:41 | Outpatient (BNVA) | payer MEDICARE, SELFPAY | PROVIDERS: PCP Nurse Practitioner Family; Referring Provider Nurse Practitioner Family; Visit Provider Internal Medicine Interventional Cardiology | DX: I25.118 Atherosclerotic heart disease of native coronary artery with other forms of angina pectoris (principal); E78.5 Hyperlipidemia, unspecified | CPT/HCPCS: 99213 ==

== ENCOUNTER → 2023-12-07 01:21 | Outpatient (CLI) | payer MEDICARE, SELFPAY ==
--- NOTE | 2023-12-07 07:00 | DI.NM_ITS ---
APPROVED REPORT Exam: Exercise Treadmill Patient Location: Out-Patient Room/Bed: Stress Nurse: Angy Galloway RN Ordering Provider:MICKY HAILE, Contact Number: BMI: 28.05 Baseline Rhythm: Sinus Bradycardia Indications: Chest pain, ASCVD Medical History Medical History: CAD, HTN, HLD, ASCVD, prostate CA, PTSD, depression, anxiety Cardiac Medications: Aspirin, Vitamin D3, coenzyme Q10, Vitamin B12, exetimbe, omega 3 fatty acids, r osuvastatin Allergies: Nitrous oxide, folic acid Cardiac Risk Factors: Family Hx, HTN, HLD Previous Cardiac Procedures: CABGx3 2009 Pretest Chest Pain Characteristics: none Exercise History: Indeterminate Physical Disabilities: none Lung Sounds: Clear to auscultation Heart Sounds: Regular Stress Test Details Test: Exercise stress testing was performed using a Mayo protocol. Nuclear Acquisition: Rest Tc-99m/Stress Tc-99m 1 day Rest Isotope: Tc-99m Sestamibi. Dose: 10 Date: 12/07/2023 Injection Time: 0930 Stress Isotope: Tc-99m Sestamibi. Dose: 30 Date: 12/07/2023 Injection Time: 1115 HR Resting HR Supine: 48 bpm Max Heart Rate (APMHR): 153.191704 bpm Resting HR Standin bpm Target HR (85% APMHR): 130.022934 bpm Max HR Achieved: 133 bpm % of APMHR: 86.93 Recovery HR: 62 bpm HR response to stress: Normal HR response to stress BP Resting BP Supine: 128/64 mmHg Resting BP Standin/76 mmHg Max BP: 164/58 mmHg Recovery BP: 110/56 mmHg BP response to stress: Abnormal hypotensive response to stress. Comment: hypotensive upon exercise cessation ECG Resting ECG: Sinus Bradycardia Ectopy: none Stress ECG: Sinus Tachycardia ST Change: Downsloping ST depression, Horizontal ST depression Lead(s): II, III, aVF, V5, V6 Stage: 2-[address] Deviation: 3 mm Arrhythmia: None Recovery ECG: Sinus Rhythm Recovery ST Change: No significant ST segment changes noted Recovery Arrhythmia: None Clinical Reason for Termination: Target HR Achieved Stress Symptoms: Dizziness Exercise duration: 10 min28 sec Highest Stage Reached: Stage 4: 4.2 mph at 16% grade. Exercise capacity: 12.59 METs Functional Capacity: Average Capacity Angina Score: None Rico Treadmill Score: 9.1 Rate Pressure Product: 10125 Stress ECG Conclusion 1. 1. Normal clinical response without induced angina 2. 2. Abnormal ECG response with downsloping ST depression inferolaterally suggestive of ischemia. 3. 3. Abnormal BP response with relative hypotension during early recovery 4. 4. Nuclear findings reported separately. Rico Treadmill Score is 9.1 which is Low risk. MPI Conclusion 1. There is small area of alicia-apical hypoperfusion which is reversible consistent with ischemia. 2. Moderate LV systolic dysfunction,EF 39% Radiologist Interpretation Radiologist Interpretation by: Matias Ramirez MD Interpretation Date/Time: 12/13/2023 07:40:11
== END ==
PROVIDERS: PCP Nurse Practitioner Family; Visit Provider Internal Medicine Interventional Cardiology
DX: I25.10 Atherosclerotic heart disease of native coronary artery without angina pectoris (principal)
CPT/HCPCS: 78452; 93016; 93018; 93017

== ENCOUNTER → 2023-12-21 00:57 | Outpatient (CLI) | payer MEDICARE, SELFPAY ==
--- NOTE | 2023-12-21 14:15 | DI.US_ITS ---
APPROVED REPORT EXAM: Comprehensive 2D, Doppler, and color-flow Echocardiogram Patient Location: Out-Patient Sap Senior Developer: Humera Pradhan RDCS Rhythm: NSR Indications: Angina, CAD, Congestive Heart Failure. Other Information Study Quality: Fair Conclusion Normal chamber sizes Mild hypokinesis of the septum and apex with normal overall LV systolic function, EF 60-65%. Normal R V function. Anatomically normal valves. Trace MR/AI/TR, no phtn No intracardiac shunt No pericardial effusion. Wall motion Left Ventricle The left ventricle is normal size. The left ventricular systolic function is normal. The left ventric ular ejection fraction is within the normal range. There is normal left ventricular wall thickness. T here is normal LV segmental wall motion. The left ventricular diastolic function is normal. There is no ventricular septal defect visualized. LVEF is 60-65%. Right Ventricle The right ventricle is normal size. The right ventricular systolic function is normal. Atria The left atrium size is normal. The right atrium size is normal. The interatrial septum is intact wit h no evidence for an atrial septal defect. Aortic Valve Aortic valve is trileaflet. Aortic valve leaflets are mildly thickened. There is no aortic valvular s tenosis. Trace aortic regurgitation. Mitral Valve Mitral valve leaflets are thickened. No evidence of mitral valve stenosis. There is trivial mitral re gurgitation. Tricuspid Valve The tricuspid valve is normal in structure. There is no tricuspid valve stenosis. Trace tricuspid reg urgitation. The RVSP is 29 mmHg. Pulmonic Valve The pulmonary valve is normal in structure. There is no pulmonic valvular stenosis. Mild pulmonic reg urgitation. Great Vessels The aortic root is normal in size. The pulmonary artery is normal. The ascending aorta is normal in s ize. Aortic arch is normal in caliber. IVC is normal in size and collapses >50% with inspiration. Pericardium There is no pericardial effusion.
== END ==
PROVIDERS: PCP Nurse Practitioner Family; Visit Provider Internal Medicine Interventional Cardiology
DX: I50.9 Heart failure, unspecified (principal)
CPT/HCPCS: 93306

== ENCOUNTER → 2023-12-28 11:28 | Outpatient (BNVA) | payer MEDICARE, SELFPAY | PROVIDERS: PCP Nurse Practitioner Family; Visit Provider Internal Medicine Cardiovascular Disease | DX: I25.118 Atherosclerotic heart disease of native coronary artery with other forms of angina pectoris (principal) | CPT/HCPCS: 99213 ==

== ENCOUNTER 2024-05-02 01:37 | Outpatient (CLI) | payer MEDICARE, SELFPAY ==
[2024-05-02 14:15] LABS: Abs Immature Grans 0.01 10^3/uL (0.0-0.06); Absolute Basophil Count 0.03 10^3/uL (0.0-0.2); Absolute Eosinophil Count 0.01 10^3/uL (0.0-0.7); Absolute Monocyte Count 0.53 10^3/uL (0.1-0.8); Absolute Neutrophil Count 3.44 10^3/uL (1.2-6.7); Basophils % 0.5 %; Eosinophils % 0.2 %; HCT 43.9 % (40.0-50.0); HGB 14.8 g/dL (13.5-17.5); Immature Grans % 0.2 %; Lymphocytes % 28.5 %; MCH 32.5 pg (27.0-33.0); MCHC 33.7 % (32.0-36.0); MCV 96 fL (80-95); MPV 10.2 fL (8.0-11.0); Monocytes % 9.4 %; Neutrophils % 61.2 %; Platelet Count 253 10^3/uL (130-400); RBC 4.56 10^6/uL (4.36-5.78); RDW 13.6 % (11.8-14.1); RDW-SD 49.1 fL; WBC 5.62 10^3/uL (4.4-10.8)
[2024-05-02 14:55] LABS: ALT 49 U/L (16-63); AST 38 U/L (15-37); Albumin 4.1 g/dL (3.4-5.0); Alkaline Phosphatase 70 U/L (46-116); Anion Gap 10.8 mmol/L (3-11); BUN 20 mg/dL (7-18); Bilirubin, Total 0.45 mg/dL (0.2-1.0); CO2 26.2 mmol/L (21.0-32.0); CREATININE 0.9 mg/dL (0.70-1.30); Calcium 9.4 mg/dL (8.5-10.1); Chloride 103 mmol/L (98-107); Estimated GFR 93.61 (mL/min/1.73m2); Glucose 111 mg/dL (74-106); Potassium 3.6 mmol/L (3.5-5.1); Sodium 140 mmol/L (136-145); Total Protein 7.7 g/dL (6.4-8.2)
[2024-05-04 11:07] LABS: PSA, Ultrasensitive 0.37 ng/mL (<= 4.5)
== END 2024-05-02 01:38 | disposition home or self-care (01) ==
PROVIDERS: PCP Nurse Practitioner Family; Visit Provider Nurse Practitioner
DX: C61 Malignant neoplasm of prostate (principal)
CPT/HCPCS: 36415; 80053; 84153; 85025

== ENCOUNTER 2024-06-28 12:32 | Outpatient (CLI) | payer MEDICARE, SELFPAY ==
[2024-06-28 12:41] LABS: Abs Immature Grans 0.01 10^3/uL (0.0-0.06); Absolute Basophil Count 0.03 10^3/uL (0.0-0.2); Absolute Eosinophil Count 0.04 10^3/uL (0.0-0.7); Absolute Lymphocyte Count 1.33 10^3/uL (1.2-3.4); Absolute Monocyte Count 0.43 10^3/uL (0.1-0.8); Absolute Neutrophil Count 3.71 10^3/uL (1.2-6.7); Basophils % 0.5 %; Eosinophils % 0.7 %; HCT 42.4 % (40.0-50.0); HGB 14.2 g/dL (13.5-17.5); Immature Grans % 0.2 %; MCH 31.8 pg (27.0-33.0); MCHC 33.5 % (32.0-36.0); MCV 95 fL (80-95); MPV 9.9 fL (8.0-11.0); Monocytes % 7.7 %; Neutrophils % 66.9 %; Platelet Count 221 10^3/uL (130-400); RBC 4.47 10^6/uL (4.36-5.78); RDW 13.5 % (11.8-14.1); RDW-SD 47.7 fL; WBC 5.55 10^3/uL (4.4-10.8)
[2024-06-28 13:52] LABS: ALT 46 U/L (16-63); AST 45 U/L (15-37); Alkaline Phosphatase 70 U/L (46-116); BUN 20 mg/dL (7-18); Bilirubin, Total 0.74 mg/dL (0.2-1.0); CREATININE 1.3 mg/dL (0.70-1.30); Calcium 9.2 mg/dL (8.5-10.1); Chloride 104 mmol/L (98-107); Estimated GFR 60.21 (mL/min/1.73m2); Glucose 138 mg/dL (74-106); Sodium 141 mmol/L (136-145); Total Protein 7.2 g/dL (6.4-8.2)
[2024-07-01 17:50] LABS: PSA, Ultrasensitive 0.22 ng/mL (<= 4.5)
== END 2024-06-28 12:33 | disposition home or self-care (01) ==
LOC: LBO 12:33
PROVIDERS: PCP Nurse Practitioner Family; Visit Provider Nurse Practitioner
DX: C61 Malignant neoplasm of prostate (principal)
CPT/HCPCS: 36415; 80053; 84153; 85025

== ENCOUNTER 2024-12-26 07:54 | Outpatient (CLI) | payer MEDICARE, SELFPAY ==
--- NOTE | 2024-12-26 07:45 | RT.EKG_ITS ---
APPROVED REPORT Exam: Resting ECG Reason for Exam: cardiac evaluation Patient Location: O HR:74 bpm ECG Measurements Heart Rate 74 AXIS MN 164 P 68 QRSd 104 QRS 76 QT 404 T 17 QTc 449 Conclusion Sinus rhythm...normal P axis, V-rate 50- 99 LVH by voltage Baseline wander in lead(s) V1,V5,V6
== END 2024-12-26 07:55 | disposition home or self-care (01) ==
LOC: DI.CARD 07:54
PROVIDERS: PCP Nurse Practitioner Family; Visit Provider Internal Medicine Cardiovascular Disease
DX: I25.118 Atherosclerotic heart disease of native coronary artery with other forms of angina pectoris (principal); Z95.1 Presence of aortocoronary bypass graft; E78.5 Hyperlipidemia, unspecified
CPT/HCPCS: 93010

== ENCOUNTER → 2024-12-26 13:23 | Outpatient (BNVA) | payer MEDICARE, SELFPAY | PROVIDERS: PCP Nurse Practitioner Family; Visit Provider Internal Medicine Cardiovascular Disease | DX: I25.118 Atherosclerotic heart disease of native coronary artery with other forms of angina pectoris (principal); Z95.1 Presence of aortocoronary bypass graft | CPT/HCPCS: 93005; 99213 ==

== ENCOUNTER 2025-09-11 03:31 | Outpatient (CLI) | payer MEDICARE, SELFPAY ==
[2025-09-11 11:03] LABS: Abs Immature Grans 0.01 10^3/uL (0.0-0.06); HCT 42.1 % (40.0-50.0); HGB 14.0 g/dL (13.5-17.5); Immature Grans % 0.2 %; MCH 31.7 pg (27.0-33.0); MCHC 33.3 % (32.0-36.0); MCV 95 fL (80-95); MPV 10.2 fL (8.0-11.0); Platelet Count 212 10^3/uL (130-400); RBC 4.42 10^6/uL (4.36-5.78); RDW 13.7 % (11.8-14.1); RDW-SD 48.7 fL; WBC 4.22 10^3/uL (4.4-10.8)
[2025-09-11 12:10] LABS: ALT 42 U/L (16-63); AST 39 U/L (15-37); Albumin 4.0 g/dL (3.4-5.0); Alkaline Phosphatase 78 U/L (46-116); Anion Gap 9.9 mmol/L (3-11); BUN 13 mg/dL (7-18); Bilirubin, Total 0.7 mg/dL (0.2-1.0); CO2 29.1 mmol/L (21.0-32.0); Calcium 9.1 mg/dL (8.5-10.1); Chloride 103 mmol/L (98-107); Glucose 93 mg/dL (74-106); Potassium 3.8 mmol/L (3.5-5.1); Sodium 142 mmol/L (136-145); Total Protein 7.4 g/dL (6.4-8.2)
== END 2025-09-11 03:32 | disposition home or self-care (01) ==
PROVIDERS: PCP Nurse Practitioner Family; Visit Provider Nurse Practitioner
DX: C61 Malignant neoplasm of prostate (principal)
CPT/HCPCS: 36415; 80053; 84153; 85025